=== PATIENT | female | born 1960 | race Caucasian/White ===

== ENCOUNTER 2023-04-23 14:35 | Emergency (ER) | payer BC, SELFPAY ==
--- NOTE | ~2023-04-23 | XR_ITS ---
EXAMINATION: XR chest 2V Exam Date/Time: 04/23/2023 15:20 CDT HISTORY: sob with exertion Comparison: None. RESULT: Lines, tubes, and devices: None. Lungs and pleura: Clear. Cardiomediastinal silhouette: Unremarkable. Other: No acute osseous or upper abdominal finding. IMPRESSION: No acute cardiopulmonary process. Reviewed, dictated and finalized at location K.
[2023-04-23 14:36] VITALS: BP 162/87; PULSE 76; RESP 20; TEMP 36.3; O2SAT 100
--- NOTE | 2023-04-23 14:48 | ECG_ITS ---
Measurements Intervals [place] Rate: 70 P: 49 ID: [id number] QRS: 22 QRSD: 93 T: 40 QT: 374 QTc: 405 Interpretive Statements SINUS RHYTHM NONSPECIFIC T-WAVE ABNORMALITY- ANTERIOR LEADS BASELINE ARTIFACT- I, II, AVR, AVL BORDERLINE ECG NO PREVIOUS ECG AVAILABLE FOR COMPARISON Electronically Signed On 04-23-2023 19:39:38 CDT by Abhijeet Jorgensen D.O.
[2023-04-23 15:27] VITALS: O2SAT 99
[2023-04-23 15:29] LABS: Basophils Absolute Auto 0.1 K/mm3 (0.0-0.1); Basophils Percent Auto 1.1 % (0.2-1.2); Eosinophils Absolute Auto 0.3 K/mm3 (0-0.3); Eosinophils Percent Auto 4.3 % (0-4.4); Hematocrit 42.5 % (37.0-47.0); Hemoglobin 13.8 g/dL (12.0-15.0); Immature Granulocyte Absolute 0.03 K/mm3 (0.00-0.031); Immature Granulocyte Percent A 0.4 % (0-0.5); Lymphocytes Absolute Auto 1.23 K/mm3 (0.9-3.2); Lymphocytes Percent Auto 16.9 % (18.3-44.2); Mean Corpuscular HGB Conc 32.5 g/dl (32-36); Mean Corpuscular Hemoglobin 30.7 pg (26-34); Mean Corpuscular Volume 94.7 fl (80-100); Mean Platelet Volume 9.2 fl (7.4-10.4); Monocytes Absolute Auto 0.5 K/mm3 (0.1-0.6); Monocytes Percent Auto 6.2 % (2.6-8.5); Neutrophils Absolute Auto 5.2 K/mm3 (1.3-6.7); Neutrophils Percent Auto 71.1 % (45.5-73.1); Platelet Count Result 225 k/mm3 (150-375); Red Blood Count 4.49 M/mm3 (4.2-5.4); Red Cell Distribution Width 14.1 % (11.5-14.5); White Blood Count 7.3 K/mm3 (4.5-10.0)
[2023-04-23 15:39] LABS: Alanine Aminotransferase 36 U/L (6-35); Albumin Level 4.1 g/dL (3.5-5.1); Alkaline Phosphatase 173 U/L (38-126); Anion Gap 3 mmol/L (8-16); Aspartate Amino Transferase 42 U/L (14-36); Bilirubin,Total 1.1 mg/dL (0.2-1.3); Blood Urea Nitrogen 15 mg/dL (7-17); Carbon Dioxide 33 mmol/L (22-30); Chloride 101 mmol/L (98-107); Estimated CRCL calculation 93 ml/min; Estimated Glomerular Filt Rate > 60; Glucose 96 mg/dL (65-110); Potassium 4.6 mmol/L (3.4-5.0); Sodium 137 mmol/L (137-145)
[2023-04-23 16:52] VITALS: PULSE 72; RESP 14; O2SAT 99
[2023-04-23 17:29] LABS: D Dimer 0.41 ug/mL (<0.48)
[2023-04-23 17:46] VITALS: PULSE 73; RESP 16; O2SAT 98
--- NOTE | 2023-04-23 18:09 | ED.EXTPRO ---
HPI - Extremity Problem General Chief complaint: Extremity Problem,Nontraumatic Stated complaint: sob, leg pain, HTN Time Seen by Provider: 04/23/23 16:15 History of Present Illness HPI Narrative: This is a 62-year-old female significant past medical history, presents emergency department complaining of right leg pain. The patient states her pain has been going on for the past 4 days. She was seen at an urgent care 2 days ago. X-rays at the time was nonconcerning for fracture or dislocation. The patient describes her pain as burning, rated 5/10, extending from the right hip to the right knee, aggravated by walking and alleviated with rest. She has no other complaints at this time Related Data Allergies Allergy/AdvReac Type Severity Reaction Status Date / Time No Known Allergies Allergy Mild Verified 04/03/10 17:00 Review of Systems Review of Systems: CONSTITUTIONAL: Denies fever, chills, or sweats. CARDIOVASCULAR: Denies chest pain, palpitations, or edema. RESPIRATORY: Denies cough or dyspnea. GASTROINTESTINAL: Denies abdominal pain, nausea, vomiting, or diarrhea. GENITOURINARY: Denies dysuria or hematuria. SKIN: Denies rash or itching. MUSCULOSKELETAL: Right leg pain denies back pain, or myalgia. NEUROLOGIC: Denies headache, numbness, dizziness, or weakness. PSYCHIATRIC: Denies anxiety or depression. [facility] Past Medical History Medical History (Updated 04/24/23 @ 00:00 by [facility]) No significant past medical history Surgical History Surgical History (Updated 04/23/23 @ 18:16 by Iván Steven MD) No significant past surgical history Social History Social History (Updated 04/23/23 @ 18:16 by Iván Steven MD) Smoking status: Never smoker Alcohol intake: never Substance use: never Exam Narrative: GENERAL: Well-developed, well-nourished, and in no acute distress. HEAD: Normocephalic, atraumatic. EYES: PERRLA and EOMI. CHEST: Clear to auscultation. No respiratory distress. No wheezes rales or rhonchi HEART: Regular rate and rhythm. No murmur heard. Normal peripheral pulses. ABDOMEN: Soft, nontender, nondistended, normal active bowel sounds. EXTREMITIES: Tender palpation over the lateral aspect of the right tibia. Tender to palpation over the lateral aspect of the right thigh. There is no overlying erythema, induration or palpable mass normal range of motion. No edema. SKIN: Warm, dry, no rash. NEURO: Alert and oriented x3. Moving all 4 limbs purposefully. PSYCH: Normal mood and affect. Course Course Emergency Course: 18:00 - CBC unremarkable. Chemistries unremarkable. X-ray not concerning for cardiothoracic process. EKG unremarkable. D-dimer negative. I suspect the patient's pain is related to IT band syndrome. Will discharge with recommendation for RICE therapy, lidocaine patches and follow-up with primary care doctor. Discussed return and emergency precautions including signs/symptoms of neurovascular compromise and septic arthritis. The patient voiced understanding and is comfortable with the plan. All questions answered to her satisfaction. Vital Signs Vital signs: Vital Signs Temperature 97.3 F L 04/23/23 14:36 Pulse Rate 76 04/23/23 14:36 Respiratory Rate 20 04/23/23 14:36 Blood Pressure 162/87 H 04/23/23 14:36 Pulse Oximetry 100 04/23/23 14:36 Oxygen Delivery Room Air 04/23/23 14:36 Temperature 97.3 F L 04/23/23 14:36 Pulse Rate 75 04/23/23 18:21 Respiratory Rate 13 04/23/23 18:21 Blood Pressure 162/87 H 04/23/23 14:36 Pulse Oximetry 98 04/23/23 18:21 Oxygen Delivery Room Air 04/23/23 15:27 MDM - Extremity (Nontraumatic) MDM Narrative Medical decision making narrative: Plan: Labs, imaging, pain control, EKG, D-dimer, reassess Differential Diagnosis Differential diagnosis: Likely other (DVT, IT band syndrome, muscular strain, other) Lab Data 04/23/23 15:22 04/23/23 15:22 L
[2023-04-23 18:21] VITALS: PULSE 75; RESP 13; O2SAT 98
== END 2023-04-23 18:49 | disposition home or self-care (01) ==
PROVIDERS: Emergency Provider Preventive Medicine Aerospace Medicine
DX: M76.31 Iliotibial band syndrome, right leg (principal)
CPT/HCPCS: 36415; 71046; 80053; 85025; 85380; 93005; 99283